=== PATIENT | male | born 1970 | race African-American/Black ===

== ENCOUNTER 2020-01-04 12:28 | Inpatient (IN) | payer OTHER ==
--- NOTE | 2020-01-04 13:34 | BHS.RME ---
Substance Use & Tx History - Substance Use History Alcohol Substance amount: 2. 5 pints Vodka, 3 x 24 ounce beer Frequency of use: Daily Substance route: Oral Date of Last Use: 01/04/20 Cocaine (Crack) Substance amount: $500 Frequency of use: Daily Substance route: Smoking Date of Last Use: 01/03/20 Physical/Psych/Mental Status - Behavior General Behavior: Decreased activity Eye Contact: Normal - Cooperativeness Cooperativeness: Cooperative - Thinking Thought Processes: Tight Thought content: Future oriented - Physical Health Problems Is patient presently having any pain?: Yes (muscle aches all over, left ankle pain) Does patient presently have any injuries (include location): No Does patient currently have a fever: No Is patient : No CIWA Nausea/Vomitin Muscle Tremors: 3 Anxiety: 1-Mildly Anxious Agitation: 0-Normal Activity Paroxysmal Sweats: 3 Orientation: 3-Disoriented Date>2 days Tacttile Disturbances: 1-Very Mild Itch/Numbness Auditory Disturbances: 1-Very Mild Visual Disturbances: 0-None Headache: 0-None Present CIWA-Ar Total Score: 15
--- NOTE | 2020-01-04 14:39 | HP ---
CIWA Score Nausea/Vomitin Muscle Tremors: 1-None Visible, but [place] Anxiety: 1-Mildly Anxious Agitation: 1-Slight > Activity Paroxysmal Sweats: 2 Orientation: 3-Disoriented Date>2 days Tacttile Disturbances: 1-Very Mild Itch/Numbness Auditory Disturbances: 0-None Visual Disturbances: 0-None Headache: 2-Mild CIWA-Ar Total Score: 14 - Admission Criteria OASAS Guidelines: Admission for Medically Managed Detox: Requires at least one of the followin. CIWA greater than 12 2. Seizures within the past 24 hours 3. Delirium tremens within the past 24 hours 4. Hallucinations within the past 24 hours 5. Acute intervention needed for co occurring medical disorder 6. Acute intervention needed for co occurring psychiatric disorder 7. Severe withdrawal that cannot be handled at a lower level of care (continued vomiting, continued diarrhea, abnormal vital signs) requiring intravenous medication and/or fluids 8. Admitting History and Physical - Admission Chief Complaint: 49 yo M, presents for alcohol Detox. History of Present Illness: 49 yo M, presents for alcohol Detox. 1st time at detox. Alcohol use 2.5 pints of Vodka daily, 24 oz beers x3 daily. First use at 15yo, last use today at 1:30 am. Denies seizures. Admits to black out last month. 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 Hospitalized for alcohol intoxication 12 yrs ago. Today CIWA 14 PMH: none PSH: left ankle reconstruction, 1995 Psych: none Social: homeless Substance: Alcohol: 2.5 pints of Vodka daily, 24 oz beers x3 daily. First use at 15yo, last use today at 1:30 am. Denies seizures. Admits to black out last month. 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 Hospitalized for alcohol intoxication 12 yrs ago. Crack cocaine: $500 daily, smoke, started at 15 yo, last use yesterday No methadone hx, no suboxone, no cig smoking Legal: none History Source: Patient Limitations to Obtaining History: No Limitations Admission ROS [facility] - HPI Allergies/Adverse Reactions: Allergies Allergy/AdvReac Type Severity Reaction Status Date / Time diphenhydramine Allergy Mild Hives Verified 01/04/20 15:07 [From Benadryl] Exam Limitations: No Limitations - Ebola screening Have you traveled outside of the country in the last 21 days: No Have you been sick,other than usual withdrawal symptoms: No Do you have a fever: No - Review of Systems Constitutional: No Symptoms Reported, Chills EENT: reports: No Symptoms Reported. denies: Blurred Vision, Tinnitus, Throat Pain Respiratory: denies: Cough, Shortness of Breath, Wheezing Cardiac: reports: Palpitations. denies: Chest Pain, Lightheadedness GI: reports: Diarrhea, Nausea, Abdominal cramping. denies: Blood Streaked Bowels, Vomiting : denies: Burning, Dysuria Musculoskeletal: reports: Back Pain, Joint Pain Integumentary: reports: Pruritus. denies: Dryness Neuro: reports: Headache, Numbness Endocrine: denies: Unexplained Weight Loss Hematology: denies: Blood Clots Psychiatric: reports: Agitated, Anxious. denies: Depressed Patient History - Patient Surgical History Hx Orthopedic Surgery: Yes (s/p ankle and wrist sugery) - PPD History PPD to be Administered?: Yes - Smoking Cessation Smoking history: Never smoked Have you smoked in the past 12 months: No Hx Chewing Tobacco Use: No Initiated information on smoking cessation: No - Substance & Tx. History Hx Alcohol Use: Yes Hx Substance Use: Yes Substance Use Type: Alcohol, Cocaine Hx Substance Use Treatment: No - Substances abused Alcohol Substance route: Oral Frequency: Daily Amount used: 2.5 pint Vodka, 3 beers, 24 oz Age of first use: 15 Date of last use: 01/04/20 Crack Substance route: Smoking Frequency: Daily Amount used: $500 Age of first use: 15 Date of last use: 01/04/20 Admission Physical Exam [facility] - Physical General Appearance: Yes: Within Normal Limits, Thin, Anxious HEENTM: Yes: Within Normal Limits, EOMI, CAT[place]. No: [place] Respiratory: Yes: Within Normal Limits, Chest Non-Tender, Lungs Clear, No Accessory Muscle Use. No: Crackles, Wheezing Neck: Yes: No masses,lesions,Nodules Cardiology: Yes: Within Normal Limits, Regular Rhythm, Regular Rate, S1, S2. No: Murmur, Gallop/S3 Abdominal: Yes: Within Normal Limits, Normal Bowel Sounds, Non Tender, Soft. No: Guarding, Rebound Musculoskeletal: Yes: Within Normal Limits Extremities: Yes: Within Normal Limits, Normal Inspection. No: Tremors Neurological: Yes: Within Normal Limits, Fully Oriented, Alert Integumentary: Yes: Normal Color, Dry, Warm - Diagnostic (1) Alcohol dependence with withdrawal Current Visit: Yes Status: Acute (2) Cocaine dependence Current Visit: No Status: Acute Cleared for Admission [facility] - Detox or Rehab [facility] Level of Care: Medically Managed Detox Regimen/Protocol: Librium Claeared for Rehab Admission: No Breathalyzer - Breathalyzer Breathalyzer: 0 Urine Drug Screen - Test Device Lot number: [id number] Expiration date: 11/19/20 - Control Is test valid?: Yes - Results Drug screen NEGATIVE: No Urine drug screen results: TIFFANY-Cocaine Inpatient Rehab Admission - Rehab Decision to Admit Inpatient rehab admission?: No
[2020-01-04] MEDS ORDERED: MAG HYDROX/AL HYDROX/SIMETH 30 ML UNIT-DOSE CUP PO PRN (14:50)
[2020-01-04] MEDS ORDERED: IBUPROFEN 400 MG TABLET (FP) PO PRN (14:50)
[2020-01-04] MEDS ORDERED: ONDANSETRON *ODT* 4 MG TABLET SL ONE (14:50)
[2020-01-04] MEDS ORDERED: BISMUTH SUBSALICYLATE 262 MG/15 ML BTL PO PRN (14:50)
[2020-01-04] MEDS ORDERED: METHOCARBAMOL 500 MG TABLET PO PRN (14:50)
[2020-01-04] MEDS ORDERED: MENTHOL/PHENOL 1 EACH UD MM PRN (14:50)
[2020-01-04] MEDS ORDERED: MAGNESIUM HYDROX 2400MG/30ML ORAL SUSPENSION 30 ML CUP PO PRN (14:50)
[2020-01-04] MEDS ORDERED: chlordiazePOXIDE HCL 25 MG CAPSULE PO PRN (14:50)
[2020-01-04] MEDS ORDERED: ACETAMINOPHEN 325 MG TABLET (FP) PO PRN ×2 (14:50)
[2020-01-04] MEDS ORDERED: MAGNESIUM CITRATE 300 ML BOTTLE PO PRN (14:50)
[2020-01-04 15:13] VITALS: BMI 22.7
[2020-01-04] MEDS ORDERED: PERMETHRIN 5% TOPICAL CREAM 60 GM TUBE TP ONE (16:15)
[2020-01-04 16:50] LABS: HEMATOCRIT 39.2 % (35.4-49); MCH 30.2 pg (25.7-33.7); MCHC 33.2 g/dl (32.0-35.9); MEAN PLT VOLUME 12.1 fl (7.5-11.1); PLATELET COUNT 148 K/MM3 (134-434); RBC 4.31 M/mm3 (4.00-5.60); RDW 13.5 % (11.9-15.9)
[2020-01-04 17:01] LABS: ALBUMIN 3.5 g/dl (3.4-5.0); BILIRUBIN,TOTAL 0.8 mg/dL (0.2-1); BLOOD UREA NITROGEN 19.2 mg/dL (7-18); CALCIUM 8.7 mg/dL (8.5-10.1); CREATININE 1.1 mg/dL (0.55-1.3); POTASSIUM 4.1 mmol/L (3.5-5.1); TOT PROT 7.2 g/dl (6.4-8.2)
[2020-01-04] MEDS: chlordiazePOXIDE HCL 25 MG CAPSULE PO SCH ×2 (17:35→22:41)
[2020-01-04] MEDS: PRENATAL VITAMINS W/ FOLIC ACID TABLET (FP) PO SCH (17:40)
[2020-01-04] MEDS: hydrOXYzine PAMOATE 25 MG CAPSULE (FP) PO SCH ×2 (18:04→22:43)
[2020-01-04] MEDS: THIAMINE HCL 100 MG TABLET (FP) PO SCH (22:41)
[2020-01-04] MEDS: MELATONIN 5 MG TABLETS PO SCH (22:47)
[2020-01-05] MEDS: hydrOXYzine PAMOATE 25 MG CAPSULE (FP) PO SCH ×5 (05:33→22:59)
[2020-01-05] MEDS: chlordiazePOXIDE HCL 25 MG CAPSULE PO SCH ×4 (05:33→22:44)
--- NOTE | 2020-01-05 10:24 | EKG ---
Test Reason : Blood Pressure : / mmHG Vent. Rate : 075 BPM Atrial Rate : 075 BPM P-R Int : 126 ms QRS Dur : 072 ms QT Int : 412 ms P-R-T Axes : 084 069 050 degrees QTc Int : 460 ms NORMAL SINUS RHYTHM MODERATE VOLTAGE CRITERIA FOR LVH, MAY BE NORMAL VARIANT BORDERLINE ECG NO PREVIOUS ECGS AVAILABLE Confirmed by MD CHRISTIANNE, LUKE ([id number]) on 01/05/2020 10:24:24 AM Referred By: Confirmed By:LUKE FAUST MD
[2020-01-05] MEDS: PRENATAL VITAMINS W/ FOLIC ACID TABLET (FP) PO SCH (10:48)
--- NOTE | 2020-01-05 11:48 | PN ---
[facility] CIWA - CIWA Score Nausea/Vomitin-Mild Nausea/No Vomiting Muscle Tremors: 2 Anxiety: 1-Mildly Anxious Agitation: 1-Slight > Activity Paroxysmal Sweats: No Perspiration Orientation: 0-Oriented Tacttile Disturbances: 0-None Auditory Disturbances: 0-None Visual Disturbances: 0-None Headache: 0-None Present CIWA-Ar Total Score: 5 BHS Progress Note (SOAP) Subjective: pt here for alcohol detox- without complaints today O: Vital Signs - 24 hr 01/04/20 01/04/20 01/04/20 15:09 17:30 21:20 Temperature 98.1 F 98.4 F 99.1 F Pulse Rate 91 H 82 88 Respiratory 16 18 18 Rate Blood Pressure 105/64 125/72 114/72 O2 Sat by Pulse 96 Oximetry (%) 01/05/20 01/05/20 01/05/20 03:39 05:25 06:55 Temperature 97.9 F Pulse Rate 82 Respiratory 18 18 Rate Blood Pressure 96/62 O2 Sat by Pulse 98 Oximetry (%) 01/05/20 09:08 Temperature 97.3 F L Pulse Rate 91 H Respiratory 18 Rate Blood Pressure 120/71 O2 Sat by Pulse Oximetry (%) Laboratory Tests 01/04/20 01/04/20 15:05 15:05 WBC 6.0 RBC 4.31 Hgb 13.0 Hct 39.2 MCV 91.0 MCH 30.2 MCHC 33.2 RDW 13.5 Plt Count 148 MPV 12.1 H Sodium 143 Potassium 4.1 Chloride 106 Carbon Dioxide 31 Anion Gap 6 L BUN 19.2 H Creatinine 1.1 Est GFR (CKD-EPI)AfAm 90.24 Est GFR (CKD-EPI)NonAf 77.86 Random Glucose 88 Calcium 8.7 Total Bilirubin 0.8 AST 75 H ALT 125 H Alkaline Phosphatase 59 Total Protein 7.2 Albumin 3.5 increased liver enzymes a/p: AUD- continue detox protocol pt without complaints
--- NOTE | 2020-01-05 21:59 | PN ---
[facility] Progress Note Note: Patient was seen and evaluated in bed. Patient still has bed bug with fresh bites noted. Patient is to continue with contact isolation Vital Signs Temperature 97.8 F 01/05/20 17:11 Pulse Rate 97 H 01/05/20 17:11 Respiratory Rate 18 01/05/20 17:11 Blood Pressure 135/75 01/05/20 17:11 O2 Sat by Pulse Oximetry (%) 98 01/05/20 14:14 Laboratory Last Values WBC 6.0 K/mm3 (4.0-10.0) 01/04/20 15:05 RBC 4.31 M/mm3 (4.00-5.60) 01/04/20 15:05 Hgb 13.0 GM/dL (11.7-16.9) 01/04/20 15:05 Hct 39.2 % (35.4-49) 01/04/20 15:05 MCV 91.0 fl (80-96) 01/04/20 15:05 MCH 30.2 pg (25.7-33.7) 01/04/20 15:05 MCHC 33.2 g/dl (32.0-35.9) 01/04/20 15:05 RDW 13.5 % (11.9-15.9) 01/04/20 15:05 Plt Count 148 K/MM3 (134-434) 01/04/20 15:05 MPV 12.1 fl (7.5-11.1) H 01/04/20 15:05 Sodium 143 mmol/L (136-145) 01/04/20 15:05 Potassium 4.1 mmol/L (3.5-5.1) 01/04/20 15:05 Chloride 106 mmol/L (98-107) 01/04/20 15:05 Carbon Dioxide 31 mmol/L (21-32) 01/04/20 15:05 Anion Gap 6 MMOL/L (8-16) L 01/04/20 15:05 BUN 19.2 mg/dL (7-18) H 01/04/20 15:05 Creatinine 1.1 mg/dL (0.55-1.3) 01/04/20 15:05 Est GFR (CKD-EPI)AfAm 90.24 01/04/20 15:05 Est GFR (CKD-EPI)NonAf 77.86 01/04/20 15:05 Random Glucose 88 mg/dL (74-106) 01/04/20 15:05 Calcium 8.7 mg/dL (8.5-10.1) 01/04/20 15:05 Total Bilirubin 0.8 mg/dL (0.2-1) 01/04/20 15:05 AST 75 U/L (15-37) H 01/04/20 15:05 ALT 125 U/L (13-61) H 01/04/20 15:05 Alkaline Phosphatase 59 U/L (45-117) 01/04/20 15:05 Total Protein 7.2 g/dl (6.4-8.2) 01/04/20 15:05 Albumin 3.5 g/dl (3.4-5.0) 01/04/20 15:05 HIV Ag/Ab Combo Qual Negative (NEGATIVE) 01/05/20 07:30 Action: Permethrin 5% topical cream ( Elimite) 1 application topical cream ordered Maintain Contact Isolation Re-evaluate patient as needed
[2020-01-05] MEDS: THIAMINE HCL 100 MG TABLET (FP) PO SCH (22:45)
[2020-01-05] MEDS: MELATONIN 5 MG TABLETS PO SCH (22:59)
[2020-01-05] MEDS ORDERED: PERMETHRIN 5% TOPICAL CREAM 60 GM TUBE TP ONE (23:00)
[2020-01-06] MEDS: chlordiazePOXIDE HCL 25 MG CAPSULE PO SCH ×4 (05:58→23:10)
[2020-01-06] MEDS: hydrOXYzine PAMOATE 25 MG CAPSULE (FP) PO SCH ×5 (07:25→23:03)
--- NOTE | 2020-01-06 10:41 | PN ---
S CIWA - CIWA Score Nausea/Vomitin-Mild Nausea/No Vomiting Muscle Tremors: 2 Anxiety: 2 Agitation: 2 Paroxysmal Sweats: No Perspiration Orientation: 0-Oriented Tacttile Disturbances: 1-Very Mild Itch/Numbness Auditory Disturbances: 0-None Visual Disturbances: 0-None Headache: 1-Very Mild CIWA-Ar Total Score: 9 S Progress Note (SOAP) Subjective: alert,irritable,anxious,interrupted sleep,aching pain Objective: 01/06/20 10:35 Vital Signs Temperature 97.9 F 01/06/20 08:34 Pulse Rate 85 01/06/20 08:34 Respiratory Rate 18 01/06/20 08:34 Blood Pressure 103/60 01/06/20 08:34 O2 Sat by Pulse Oximetry (%) 99 01/06/20 05:25 01/06/20 10:45 Laboratory Last Values WBC 6.0 K/mm3 (4.0-10.0) 01/04/20 15:05 RBC 4.31 M/mm3 (4.00-5.60) 01/04/20 15:05 Hgb 13.0 GM/dL (11.7-16.9) 01/04/20 15:05 Hct 39.2 % (35.4-49) 01/04/20 15:05 MCV 91.0 fl (80-96) 01/04/20 15:05 MCH 30.2 pg (25.7-33.7) 01/04/20 15:05 MCHC 33.2 g/dl (32.0-35.9) 01/04/20 15:05 RDW 13.5 % (11.9-15.9) 01/04/20 15:05 Plt Count 148 K/MM3 (134-434) 01/04/20 15:05 MPV 12.1 fl (7.5-11.1) H 01/04/20 15:05 Sodium 143 mmol/L (136-145) 01/04/20 15:05 Potassium 4.1 mmol/L (3.5-5.1) 01/04/20 15:05 Chloride 106 mmol/L (98-107) 01/04/20 15:05 Carbon Dioxide 31 mmol/L (21-32) 01/04/20 15:05 Anion Gap 6 MMOL/L (8-16) L 01/04/20 15:05 BUN 19.2 mg/dL (7-18) H 01/04/20 15:05 Creatinine 1.1 mg/dL (0.55-1.3) 01/04/20 15:05 Est GFR (CKD-EPI)AfAm 90.24 01/04/20 15:05 Est GFR (CKD-EPI)NonAf 77.86 01/04/20 15:05 Random Glucose 88 mg/dL (74-106) 01/04/20 15:05 Calcium 8.7 mg/dL (8.5-10.1) 01/04/20 15:05 Total Bilirubin 0.8 mg/dL (0.2-1) 01/04/20 15:05 AST 75 U/L (15-37) H 01/04/20 15:05 ALT 125 U/L (13-61) H 01/04/20 15:05 Alkaline Phosphatase 59 U/L (45-117) 01/04/20 15:05 Total Protein 7.2 g/dl (6.4-8.2) 01/04/20 15:05 Albumin 3.5 g/dl (3.4-5.0) 01/04/20 15:05 HIV Ag/Ab Combo Qual Negative (NEGATIVE) 01/05/20 07:30 Assessment: 01/06/20 10:46 withdrawal symptom Plan: continue detox librium regimen,repeat cmp in am for elevation of ast,alt,encourage oral fluid
[2020-01-06] MEDS: PRENATAL VITAMINS W/ FOLIC ACID TABLET (FP) PO SCH (11:07)
[2020-01-06] MEDS: THIAMINE HCL 100 MG TABLET (FP) PO SCH (23:03)
[2020-01-06] MEDS: MELATONIN 5 MG TABLETS PO SCH (23:14)
[2020-01-07] MEDS ORDERED: chlordiazePOXIDE HCL 10 MG CAPSULE PO PRN
[2020-01-07] MEDS: hydrOXYzine PAMOATE 25 MG CAPSULE (FP) PO SCH ×5 (06:09→22:24)
[2020-01-07] MEDS: chlordiazePOXIDE HCL 10 MG CAPSULE PO SCH ×4 (06:09→22:24)
[2020-01-07] MEDS: PRENATAL VITAMINS W/ FOLIC ACID TABLET (FP) PO SCH (10:38)
[2020-01-07 12:58] LABS: ALBUMIN 2.8 g/dl (3.4-5.0); BILIRUBIN,TOTAL 0.2 mg/dL (0.2-1); BLOOD UREA NITROGEN 19.9 mg/dL (7-18); CALCIUM 8.9 mg/dL (8.5-10.1); CREATININE 1.1 mg/dL (0.55-1.3); POTASSIUM 3.9 mmol/L (3.5-5.1); TOT PROT 6.1 g/dl (6.4-8.2)
--- NOTE | 2020-01-07 13:41 | PN ---
S CIWA - CIWA Score Nausea/Vomitin-Mild Nausea/No Vomiting Muscle Tremors: 2 Anxiety: 2 Agitation: 2 Paroxysmal Sweats: No Perspiration Orientation: 0-Oriented Tacttile Disturbances: 1-Very Mild Itch/Numbness Auditory Disturbances: 0-None Visual Disturbances: 0-None Headache: 1-Very Mild CIWA-Ar Total Score: 9 BHS Progress Note (SOAP) Subjective: alert,irritable,anxious,interrupted sleep,pain in the body Objective: 01/07/20 13:39 Vital Signs Temperature 97.2 F L 01/07/20 09:05 Pulse Rate 86 01/07/20 09:05 Respiratory Rate 16 01/07/20 09:05 Blood Pressure 107/65 01/07/20 09:05 O2 Sat by Pulse Oximetry (%) 99 01/07/20 06:28 Laboratory Results - last 24 hr 01/05/20 01/07/20 07:30 07:45 Sodium 142 Potassium 3.9 Chloride 106 Carbon Dioxide 30 Anion Gap 6 L BUN 19.9 H Creatinine 1.1 Est GFR (CKD-EPI)AfAm 90.24 Est GFR (CKD-EPI)NonAf 77.86 Random Glucose 101 Calcium 8.9 Total Bilirubin 0.2 AST 28 ALT 64 H Alkaline Phosphatase 42 L Total Protein 6.1 L Albumin 2.8 L RPR Titer Nonreactive Assessment: 01/07/20 13:40 withdrawal symptom Plan: continue detox librium regimen,encourage oral fluid,azothemia
[2020-01-07] MEDS: THIAMINE HCL 100 MG TABLET (FP) PO SCH (22:24)
[2020-01-07] MEDS: MELATONIN 5 MG TABLETS PO SCH (22:25)
[2020-01-08] MEDS: chlordiazePOXIDE HCL 10 MG CAPSULE PO SCH ×2 (06:52→18:02)
[2020-01-08] MEDS: hydrOXYzine PAMOATE 25 MG CAPSULE (FP) PO SCH ×5 (06:53→22:44)
[2020-01-08] MEDS: PRENATAL VITAMINS W/ FOLIC ACID TABLET (FP) PO SCH (10:26)
--- NOTE | 2020-01-08 13:58 | PN ---
[facility] CIWA - CIWA Score Nausea/Vomitin-No Nausea/No Vomiting Muscle Tremors: None Anxiety: 0-No Anxiety, at Ease Agitation: 1-Slight > Activity Paroxysmal Sweats: No Perspiration Orientation: 0-Oriented Tacttile Disturbances: 0-None Auditory Disturbances: 0-None Visual Disturbances: 0-None Headache: 0-None Present CIWA-Ar Total Score: 1 BHS Progress Note (SOAP) Subjective: Patient denies current Withdrawal / Detox symptoms and reports that he feels well overall at this time. Objective: PATIENT A & O X 3, OBSERVED AMBULATING ON DETOX UNIT UNASSISTED. IN NO ACUTE DISTRESS. 01/08/20 13:55 Vital Signs Temperature 98.1 F 01/08/20 09:05 Pulse Rate 99 H 01/08/20 09:05 Respiratory Rate 18 01/08/20 09:05 Blood Pressure 124/70 01/08/20 09:05 O2 Sat by Pulse Oximetry (%) 100 01/08/20 05:09 Laboratory Tests 01/04/20 01/04/20 01/05/20 15:05 15:05 07:30 WBC 6.0 RBC 4.31 Hgb 13.0 Hct 39.2 MCV 91.0 MCH 30.2 MCHC 33.2 RDW 13.5 Plt Count 148 MPV 12.1 H Sodium 143 Potassium 4.1 Chloride 106 Carbon Dioxide 31 Anion Gap 6 L BUN 19.2 H Creatinine 1.1 Est GFR (CKD-EPI)AfAm 90.24 Est GFR (CKD-EPI)NonAf 77.86 Random Glucose 88 Calcium 8.7 Total Bilirubin 0.8 AST 75 H ALT 125 H Alkaline Phosphatase 59 Total Protein 7.2 Albumin 3.5 RPR Titer HIV Ag/Ab Combo Qual Negative 01/05/20 01/07/20 07:30 07:45 WBC RBC Hgb Hct MCV MCH MCHC RDW Plt Count MPV Sodium 142 Potassium 3.9 Chloride 106 Carbon Dioxide 30 Anion Gap 6 L BUN 19.9 H Creatinine 1.1 Est GFR (CKD-EPI)AfAm 90.24 Est GFR (CKD-EPI)NonAf 77.86 Random Glucose 101 Calcium 8.9 Total Bilirubin 0.2 AST 28 ALT 64 H Alkaline Phosphatase 42 L Total Protein 6.1 L Albumin 2.8 L RPR Titer Nonreactive HIV Ag/Ab Combo Qual LABS NOTED. Assessment: 01/08/20 13:56 WITHDRAWAL SYMPTOMS. ELEVATED ALT LEVEL. 01/08/20 13:56 Plan: CONTINUE DETOX. PATIENT SCHEDULED FOR D/C FROM DETOX UNIT TOMORROW.
[2020-01-08] MEDS: THIAMINE HCL 100 MG TABLET (FP) PO SCH (22:44)
[2020-01-08] MEDS: MELATONIN 5 MG TABLETS PO SCH (22:44)
[2020-01-09] MEDS ORDERED: chlordiazePOXIDE HCL 10 MG CAPSULE PO ONE (05:00)
[2020-01-09] MEDS: hydrOXYzine PAMOATE 25 MG CAPSULE (FP) PO SCH ×5 (06:14→22:24)
--- NOTE | 2020-01-09 10:28 | PN ---
[facility] CIWA - CIWA Score Nausea/Vomitin-No Nausea/No Vomiting Muscle Tremors: None Anxiety: 1-Mildly Anxious Agitation: 0-Normal Activity Paroxysmal Sweats: No Perspiration Orientation: 0-Oriented Tacttile Disturbances: 0-None Auditory Disturbances: 0-None Visual Disturbances: 0-None Headache: 0-None Present CIWA-Ar Total Score: 1 S Progress Note (SOAP) Subjective: Denies any withdrawal symptoms. Objective: 01/09/20 10:25 Vital Signs 01/09/20 01/09/20 01/09/20 03:30 05:36 09:01 Temperature 98.1 F 97.9 F Pulse Rate 83 90 Respiratory 18 18 18 Rate Blood Pressure 99/64 119/50 L O2 Sat by Pulse 98 Oximetry (%) Laboratory Last Values WBC 6.0 K/mm3 (4.0-10.0) 01/04/20 15:05 RBC 4.31 M/mm3 (4.00-5.60) 01/04/20 15:05 Hgb 13.0 GM/dL (11.7-16.9) 01/04/20 15:05 Hct 39.2 % (35.4-49) 01/04/20 15:05 MCV 91.0 fl (80-96) 01/04/20 15:05 MCH 30.2 pg (25.7-33.7) 01/04/20 15:05 MCHC 33.2 g/dl (32.0-35.9) 01/04/20 15:05 RDW 13.5 % (11.9-15.9) 01/04/20 15:05 Plt Count 148 K/MM3 (134-434) 01/04/20 15:05 MPV 12.1 fl (7.5-11.1) H 01/04/20 15:05 Sodium 142 mmol/L (136-145) 01/07/20 07:45 Potassium 3.9 mmol/L (3.5-5.1) 01/07/20 07:45 Chloride 106 mmol/L (98-107) 01/07/20 07:45 Carbon Dioxide 30 mmol/L (21-32) 01/07/20 07:45 Anion Gap 6 MMOL/L (8-16) L 01/07/20 07:45 BUN 19.9 mg/dL (7-18) H 01/07/20 07:45 Creatinine 1.1 mg/dL (0.55-1.3) 01/07/20 07:45 Est GFR (CKD-EPI)AfAm 90.24 01/07/20 07:45 Est GFR (CKD-EPI)NonAf 77.86 01/07/20 07:45 Random Glucose 101 mg/dL (74-106) 01/07/20 07:45 Calcium 8.9 mg/dL (8.5-10.1) 01/07/20 07:45 Total Bilirubin 0.2 mg/dL (0.2-1) 01/07/20 07:45 AST 28 U/L (15-37) 01/07/20 07:45 ALT 64 U/L (13-61) H 01/07/20 07:45 Alkaline Phosphatase 42 U/L (45-117) L 01/07/20 07:45 Total Protein 6.1 g/dl (6.4-8.2) L 01/07/20 07:45 Albumin 2.8 g/dl (3.4-5.0) L 01/07/20 07:45 RPR Titer Nonreactive (NONREACTIVE) 01/05/20 07:30 HIV Ag/Ab Combo Qual Negative (NEGATIVE) 01/05/20 07:30 Labs noted. Assessment: 01/09/20 10:27 AOX3, in no acute respiratory distress. Full ROM, ambulating in the unit. No Withdrawal symptoms. Pt's discharge today is put on hold for d/c to rehab tomorrow. Plan: continue detox. D/c in AM.
[2020-01-09] MEDS: PRENATAL VITAMINS W/ FOLIC ACID TABLET (FP) PO SCH (11:16)
[2020-01-09] MEDS: THIAMINE HCL 100 MG TABLET (FP) PO SCH (22:24)
[2020-01-09] MEDS: MELATONIN 5 MG TABLETS PO SCH (22:24)
[2020-01-10] MEDS: hydrOXYzine PAMOATE 25 MG CAPSULE (FP) PO SCH ×2 (05:40→10:32)
--- NOTE | 2020-01-10 08:38 | DS ---
[facility] Detox Discharge Summary Admission Date: 01/04/20 Discharge Date: 01/10/20 - History Present History: Alcohol Dependence, Cocaine Dependence - Physical Exam Results Vital Signs: Vital Signs Temperature 96.8 F L 01/10/20 06:03 Pulse Rate 78 01/10/20 06:03 Respiratory Rate 18 01/10/20 06:03 Blood Pressure 108/63 01/10/20 06:03 O2 Sat by Pulse Oximetry (%) 100 01/10/20 06:03 Pertinent Admission Physical Exam Findings: Vital Signs Temperature 96.8 F L 01/10/20 06:03 Pulse Rate 78 01/10/20 06:03 Respiratory Rate 18 01/10/20 06:03 Blood Pressure 108/63 01/10/20 06:03 O2 Sat by Pulse Oximetry (%) 100 01/10/20 06:03 Laboratory Tests 01/04/20 01/04/20 01/05/20 15:05 15:05 07:30 WBC 6.0 RBC 4.31 Hgb 13.0 Hct 39.2 MCV 91.0 MCH 30.2 MCHC 33.2 RDW 13.5 Plt Count 148 MPV 12.1 H Sodium 143 Potassium 4.1 Chloride 106 Carbon Dioxide 31 Anion Gap 6 L BUN 19.2 H Creatinine 1.1 Est GFR (CKD-EPI)AfAm 90.24 Est GFR (CKD-EPI)NonAf 77.86 Random Glucose 88 Calcium 8.7 Total Bilirubin 0.8 AST 75 H ALT 125 H Alkaline Phosphatase 59 Total Protein 7.2 Albumin 3.5 RPR Titer HIV Ag/Ab Combo Qual Negative 01/05/20 01/07/20 07:30 07:45 WBC RBC Hgb Hct MCV MCH MCHC RDW Plt Count MPV Sodium 142 Potassium 3.9 Chloride 106 Carbon Dioxide 30 Anion Gap 6 L BUN 19.9 H Creatinine 1.1 Est GFR (CKD-EPI)AfAm 90.24 Est GFR (CKD-EPI)NonAf 77.86 Random Glucose 101 Calcium 8.9 Total Bilirubin 0.2 AST 28 ALT 64 H Alkaline Phosphatase 42 L Total Protein 6.1 L Albumin 2.8 L RPR Titer Nonreactive HIV Ag/Ab Combo Qual aaox3 ambulating no acute distress - Treatment Hospital Course: Detox Protocol Followed, Detoxed Safely, Responded well, Discharged Condition Good, Rehab Referral Accepted - Medication Discharge Medications: Ambulatory Orders NK [No Known Home Medication] 01/04/20 - Diagnosis (1) Alcohol dependence with withdrawal Current Visit: Yes Status: Chronic Qualifiers: Complication of substance-induced condition: uncomplicated Qualified Code(s): F10.230 - Alcohol dependence with withdrawal, uncomplicated (2) Cocaine dependence Current Visit: Yes Status: Chronic Qualifiers: Substance use status: uncomplicated Qualified Code(s): F14.20 - Cocaine dependence, uncomplicated - AMA Did Patient Leave Against Medical Advice: No
[2020-01-10] MEDS: PRENATAL VITAMINS W/ FOLIC ACID TABLET (FP) PO SCH (10:32)
[2020-01-10 14:16] VITALS: BP 114/66; PULSE 95; TEMP 98.1
== END 2020-01-10 15:20 | disposition other institution (70) | DRG 774 ==
LOC: YASAS 12:28 → Y6N 15:33
PROVIDERS: ADMIT Allergy & Immunology; ATTEND Allergy & Immunology
PROC: HZ2ZZZZ Detoxification Services for Substance Abuse Treatment (ICD-10-PCS; principal; 2020-01-04)
DX: F10.230 Alcohol dependence with withdrawal, uncomplicated (principal); F14.20 Cocaine dependence, uncomplicated; R74.0 Nonspecific elevation of levels of transaminase and lactic acid dehydrogenase [LDH]; R79.89 Other specified abnormal findings of blood chemistry; T14.8XXA Other injury of unspecified body region, initial encounter; W57.XXXA Bitten or stung by nonvenomous insect and other nonvenomous arthropods, initial encounter; Y93.89 Activity, other specified; Y92.098 Other place in other non-institutional residence as the place of occurrence of the external cause; Z88.8 Allergy status to other drugs, medicaments and biological substances; Z59.0 Homelessness
CPT/HCPCS: 36415; 80053; 85027; 86593; 87389; 93005; 93010; Q0162